=== PATIENT | male | born 1935 | race Two or more races ===

== ENCOUNTER 2020-09-13 11:30 | Inpatient (IN) | payer BC ==
[~2020-09-13] VITALS: Ht 162.6 cm; Wt 86.1 kg
[~2020-09-13 11:30] MED LIST: AMIO200T4 PO; ASPI-543 PO; BUME1TAB28 PO; CLOP75TA28 PO; GABA100C9 PO; INSUINJ SC; LOVA40TA72 PO; MET50T PO; NIFE1TAB36 PO; POTA-220 PO; TRAM50TA2 PO
[2020-09-13] MEDS ORDERED: SODIUM CHLORIDE 0.9% 500 ML IVB ONE (11:45)
[2020-09-13 12:30] LABS: Basophils # (auto) 0.1 10 ^3/uL (0-0.2); Basophils % (auto) 0.5 % (0.0-2.0); Eosinophils # (auto) 0.1 10 ^3/uL (0-0.8); Eosinophils % (auto) 0.4 % (0.0-7.0); Hematocrit 25.9 % (41.0-53.0); Hemoglobin 8.5 g/dL (13.5-17.5); Mean Corpuscular Hgb Conc. 32.9 g/dL (32.0-36.0); Red Blood Cells 2.53 10^6/uL (4.5-5.90)
[2020-09-13 12:31] LABS: Lymphocytes # (auto) 2.9 10 ^3/uL (0.4-5.4); Lymphocytes % (auto) 21.5 % (10.0-50.0); Mean Corpuscular Hemoglobin 33.6 pg (28.0-32.0); Mean Corpuscular Volume 102.3 fL (80.0-100.0); Monocytes # (auto) 0.7 10 ^3/uL (0-1.3); Monocytes % (auto) 5.5 % (0.0-12.0); Neutrophils # (auto) 9.5 10 ^3/uL (1.6-8.6); Neutrophils % (auto) 72.1 % (37.0-80.0); Platelet Count (auto) 188 10^3/uL (140-450); Red Cell Distribution Width 14.5 % (11.8-14.3); White Blood Cell 13.2 10^3/uL (4.4-10.8)
[2020-09-13 12:51] LABS: Albumin 2.9 g/dL (3.4-5.0); Calcium 7.5 mg/dL (8.5-10.1); INR 1.09 (0.9-1.15); Partial Thromboplastin Time 24.7 sec (23.0-31.2); Potassium 4.4 mmol/L (3.5-5.1)
[2020-09-13 12:54] LABS: BUN/Creatinine Ratio 9.5; Bilirubin, Total 0.4 mg/dL (0.2-1.0)
[2020-09-13] MEDS ORDERED: PANTOPRAZOLE 40mg/50ML NS AE 50 ML IV SCH (15:00)
[2020-09-13] MEDS ORDERED: METOCLOPRAMIDE HCL 5MG/ml INJ 2ml VIAL IV PRN (15:00)
[2020-09-13] MEDS ORDERED: DEXTROSE (50%) 50ML SYRG IV PRN (15:00)
[2020-09-13] MEDS ORDERED: ACETAMINOPHEN 500 MG TAB PO PRN (15:00)
[2020-09-13] MEDS ORDERED: PANTOPRAZOLE 40 MG/10 ML VIAL INJ IV ONE (15:00)
[2020-09-13] MEDS ORDERED: NITROGLYCERIN 0.4 MG SL TAB SL PRN (15:00)
[2020-09-13] MEDS ORDERED: MORPHINE SULF INJ 2 MG/ML SYRINGE 1ML IV PRN ×2 (15:00)
[2020-09-13] MEDS ORDERED: GOLYTELY 4L KIT PO ONE (16:00)
[2020-09-13] MEDS: InsuLIN REG 1unit/0.01ml Soln (100units/ml) SC SCH ×2 (18:00→23:41)
[2020-09-13] MEDS: GABAPENTIN 100 MG CAP PO SCH (18:24)
[2020-09-13] MEDS: ACCU-CHEK COMFORT CURVE STRIP VI SCH ×2 (18:26→23:41)
[2020-09-13 19:22] LABS: Hematocrit 21.9 % (41.0-53.0); Hemoglobin 7.4 g/dL (13.5-17.5)
[2020-09-13 21:01] VITALS: BP_SYST 130; BP_SYST 131; BP_DIAS 55; BP_DIAS 85
[2020-09-13] MEDS: BUMETANIDE 1 MG TAB PO SCH (22:21)
[2020-09-13] MEDS: PRAVASTATIN SODIUM 20 MG TAB PO SCH (22:21)
[2020-09-13] MEDS: METOPROLOL TARTRATE 50 MG TAB PO SCH (22:21)
[2020-09-14] VITALS (12 sets, daily range): BP systolic 122–150; BP diastolic 55–93
[2020-09-14] MEDS: InsuLIN REG 1unit/0.01ml Soln (100units/ml) SC SCH ×4 (06:00→23:29)
[2020-09-14] MEDS: ACCU-CHEK COMFORT CURVE STRIP VI SCH ×4 (06:31→23:24)
[2020-09-14] MEDS: GABAPENTIN 100 MG CAP PO SCH ×3 (09:42→17:40)
[2020-09-14 09:43] LABS: Basophils # (auto) 0.1 10 ^3/uL (0-0.2); Basophils % (auto) 0.5 % (0.0-2.0); Eosinophils # (auto) 0.1 10 ^3/uL (0-0.8); Eosinophils % (auto) 1.1 % (0.0-7.0); Hematocrit 26.7 % (41.0-53.0); Hemoglobin 8.8 g/dL (13.5-17.5); Lymphocytes # (auto) 3.9 10 ^3/uL (0.4-5.4); Lymphocytes % (auto) 31.1 % (10.0-50.0); Mean Corpuscular Hemoglobin 31.9 pg (28.0-32.0); Mean Corpuscular Hgb Conc. 33.1 g/dL (32.0-36.0); Mean Corpuscular Volume 96.3 fL (80.0-100.0); Monocytes # (auto) 0.8 10 ^3/uL (0-1.3); Monocytes % (auto) 6.1 % (0.0-12.0); Neutrophils # (auto) 7.7 10 ^3/uL (1.6-8.6); Neutrophils % (auto) 61.2 % (37.0-80.0); Platelet Count (auto) 147 10^3/uL (140-450); Red Blood Cells 2.77 10^6/uL (4.5-5.90); Red Cell Distribution Width 18.7 % (11.8-14.3); White Blood Cell 12.5 10^3/uL (4.4-10.8)
[2020-09-14] MEDS: AMIODARONE HCL 200 MG TAB PO SCH (09:43)
[2020-09-14] MEDS: BUMETANIDE 1 MG TAB PO SCH ×2 (09:43→21:55)
[2020-09-14] MEDS: METOPROLOL TARTRATE 50 MG TAB PO SCH ×2 (09:44→21:56)
[2020-09-14] MEDS: POTASSIUM CHL 20 Meq TABLET PO SCH (10:00)
[2020-09-14 10:01] LABS: Calcium 7.6 mg/dL (8.5-10.1); Potassium 5.4 mmol/L (3.5-5.1)
[2020-09-14 10:03] LABS: BUN/Creatinine Ratio 10.2
[2020-09-14 10:05] LABS: INR 1.09 (0.9-1.15); Partial Thromboplastin Time 26.4 sec (23.0-31.2)
[2020-09-14] MEDS ORDERED: SODIUM CHLORIDE LOCK 10 ML ONE (10:08)
[2020-09-14] MEDS ORDERED: diphenhdrAMINE HCL 50 MG/1 ML VL ONE (10:08)
[2020-09-14] MEDS: fentaNYL CITRATE 100 MCG/2 ML VL ONE ×2 (12:42→12:50)
[2020-09-14] MEDS: MIDAZOLAM HCL 5 MG/ML-1ML VIAL ONE ×2 (12:42→12:50)
[2020-09-14] MEDS: SODIUM ZIRCONIUM CYCL 10 GM PAK PO SCH ×2 (17:11→21:57)
[2020-09-14] MEDS: PRAVASTATIN SODIUM 20 MG TAB PO SCH (21:54)
[2020-09-15 05:00] VITALS: BP 131/61
[2020-09-15] MEDS: ACCU-CHEK COMFORT CURVE STRIP VI SCH ×2 (05:34→12:07)
[2020-09-15] MEDS: InsuLIN REG 1unit/0.01ml Soln (100units/ml) SC SCH ×2 (05:35→12:05)
[2020-09-15 06:52] LABS: Eosinophils # (auto) 0.3 10 ^3/uL (0-0.8); Hemoglobin 8.1 g/dL (13.5-17.5); Monocytes # (auto) 1.1 10 ^3/uL (0-1.3)
[2020-09-15 06:55] LABS: Basophils # (auto) 0 10 ^3/uL (0-0.2); Basophils % (auto) 0.2 % (0.0-2.0); Eosinophils % (auto) 2.3 % (0.0-7.0); Hematocrit 23.9 % (41.0-53.0); Lymphocytes % (auto) 37.8 % (10.0-50.0); Mean Corpuscular Hemoglobin 32.4 pg (28.0-32.0); Mean Corpuscular Hgb Conc. 33.7 g/dL (32.0-36.0); Neutrophils # (auto) 6.9 10 ^3/uL (1.6-8.6); Neutrophils % (auto) 51.7 % (37.0-80.0); Platelet Count (auto) 144 10^3/uL (140-450); Red Blood Cells 2.49 10^6/uL (4.5-5.90); Red Cell Distribution Width 18.9 % (11.8-14.3); White Blood Cell 13.4 10^3/uL (4.4-10.8)
[2020-09-15 07:13] LABS: Calcium 7.2 mg/dL (8.5-10.1); Potassium 4.5 mmol/L (3.5-5.1)
[2020-09-15] MEDS: GABAPENTIN 100 MG CAP PO SCH ×2 (07:16→12:04)
[2020-09-15 07:20] LABS: BUN/Creatinine Ratio 9.8
[2020-09-15 09:00] VITALS: BP 156/65
[2020-09-15] MEDS: SODIUM ZIRCONIUM CYCL 10 GM PAK PO SCH (10:00)
[2020-09-15] MEDS: POTASSIUM CHL 20 Meq TABLET PO SCH (10:00)
[2020-09-15] MEDS: AMIODARONE HCL 200 MG TAB PO SCH (10:06)
[2020-09-15] MEDS: BUMETANIDE 1 MG TAB PO SCH (10:06)
[2020-09-15] MEDS: METOPROLOL TARTRATE 50 MG TAB PO SCH (10:07)
[2020-09-15 13:00] VITALS: BP 137/66
[2020-09-15 13:16] VITALS: BP 137/66
[2020-09-16] MEDS ORDERED: SODIUM CHL 0.9% 1000 ML BAG XX ONE (07:00)
[2020-09-16] MEDS ORDERED: EPOETIN ALFA 10,000 UNIT/1 ML VIAL SC ONE (21:00)
== END 2020-09-15 16:50 | disposition home or self-care (01) | DRG 377 ==
LOC: ER 11:30 → TELE 15:29 → TELE-EAST 20:23 → TELE-CENTR 09-14 17:26
PROVIDERS: ADMIT Hospitalist; ATTEND Hospitalist
PROC: 0DBM8ZX Excision of Descending Colon, Via Natural or Artificial Opening Endoscopic, Diagnostic (ICD-10-PCS; 2020-09-14)
PROC: 30233N1 Transfusion of Nonautologous Red Blood Cells into Peripheral Vein, Percutaneous Approach (ICD-10-PCS; principal; 2020-09-14 12:40)
DX: K57.31 Diverticulosis of large intestine without perforation or abscess with bleeding (principal); N18.6 End stage renal disease; I13.2 Hypertensive heart and chronic kidney disease with heart failure and with stage 5 chronic kidney disease, or end stage renal disease; D50.0 Iron deficiency anemia secondary to blood loss (chronic); Z20.828 Contact with and (suspected) exposure to other viral communicable diseases; E11.22 Type 2 diabetes mellitus with diabetic chronic kidney disease; I50.9 Heart failure, unspecified; E78.5 Hyperlipidemia, unspecified; E66.9 Obesity, unspecified; D63.8 Anemia in other chronic diseases classified elsewhere; K64.8 Other hemorrhoids; K63.5 Polyp of colon; I25.10 Atherosclerotic heart disease of native coronary artery without angina pectoris; Z95.1 Presence of aortocoronary bypass graft; Z83.3 Family history of diabetes mellitus; Z87.891 Personal history of nicotine dependence; Z88.0 Allergy status to penicillin; Z88.2 Allergy status to sulfonamides; Z90.49 Acquired absence of other specified parts of digestive tract; Z90.89 Acquired absence of other organs; Z79.4 Long term (current) use of insulin; Z99.2 Dependence on renal dialysis; Z82.49 Family history of ischemic heart disease and other diseases of the circulatory system; Z80.42 Family history of malignant neoplasm of prostate; Z82.5 Family history of asthma and other chronic lower respiratory diseases; Z80.0 Family history of malignant neoplasm of digestive organs; Z68.32 Body mass index [BMI] 32.0-32.9, adult; Z79.899 Other long term (current) drug therapy
CPT/HCPCS: 36415; 45380; 74176; 80048; 80053; 82962; 83690; 85014; 85018; 85025; 85610; 85730; 86850; 86900; 86901; 86920; 87426; 93005; 96361; 96365; 96375; C9113; G0378; J1815; J2250